=== PATIENT | male | born 1985 | race Caucasian/White ===

== ENCOUNTER 2017-07-16 14:52 | Emergency (ER) | payer SELFPAY ==
[2017-07-16 15:57] VITALS: BP 129/79
--- NOTE | 2017-07-16 16:13 | UC ---
GI Bleed HPI - HPI Summary HPI Summary: Pt presents with c/o of intermittent bloody discharge after BM's. Pt reports that he has had intermittent episodes over the last year. Denies, constipation , pain, anal intercourse, fever, chills, known history of GI disorder personal or FMH, denies, change in weight, night sweats, or change in dietary habits. - History Of Current Complaint Stated Complaint: PERSONAL Time Seen by Provider: 07/16/17 15:15 Hx Obtained From: Patient Onset/Duration: Gradual Onset, Lasting Weeks - one year, Still Present Timing: Intermittent Episodes Lasting: - 5-67 times per month Severity: Bright Red Blood per Rectum Severity Initially: Mild Severity Currently: None Associated Pain: None Associated Signs And Symptoms: Positive: Negative - Risk Factors GI Bleed Risk Factors: Negative - Allergies/Home medications Allergies/Adverse Reactions: Allergies Allergy/AdvReac Type Severity Reaction Status Date / Time No Known Allergies Allergy Verified 07/16/17 15:29 PMH/Surg Hx/FS Hx/Imm Hx Previously Healthy: Yes - Surgical History Surgical History: Yes Surgery Procedure, Year, and Place: Tonsils. Broken collarbone. Hernia as baby - Family History Known Family History: Positive: Other - breast cancer materanl grandmother - Social History Occupation: Employed Full-time Lives: With Family Alcohol Use: Rare Substance Use Type: Marijuana Substance Use Comment - Amount & Last Used: Daily Smoking Status (MU): Heavy Every Day Tobacco Smoker Type: Cigarettes Amount Used/How Often: 1 pack per day Length of Time of Smoking/Using Tobacco: 12 yrs Have You Smoked in the Last Year: Yes Household Exposure Type: Cigarettes - Immunization History Most Recent Influenza Vaccination: NONE 2015 Most Recent Tetanus Shot: UNKNOWN Review of Systems Constitutional: Negative Skin: Negative Eyes: Negative ENT: Negative Respiratory: Negative Cardiovascular: Negative Gastrointestinal: Other - BRBPR with BM's Genitourinary: Negative Motor: Negative Neurovascular: Negative Musculoskeletal: Negative Neurological: Negative Psychological: Negative All Other Systems Reviewed And Are Negative: Yes Physical Exam Triage Information Reviewed: Yes Appearance: Well-Appearing Vital Signs: Initial Vital Signs Temp 98.5 F 07/16/17 15:30 Pulse 70 07/16/17 15:30 Resp 16 07/16/17 15:30 BP 129/79 07/16/17 15:30 Pulse Ox 100 07/16/17 15:30 Vital Signs Reviewed: Yes Eye Exam: Normal ENT Exam: Normal Dental: Positive: Gross Decay/Caries @ - generalized Neck exam: Normal Respiratory Exam: Normal Cardiovascular Exam: Normal Abdominal Exam: Normal, Other - no external anal hemorrhoids visualized, no internal rectal hemorrhoids appreciated Musculoskeletal Exam: Normal Neurological Exam: Normal Psychological Exam: Normal Skin Exam: Normal Bleed Course/Dx - Course Course Of Treatment: I discussed with the pt the need to establish care with aPCP for health maintenance and to further pursue his current c/o of year long episodic BRBPR. Occult stool test was negative at today's visit. - Differential Dx/Diagnosis Differential Diagnosis/HQI/PQRI: Cancer, Diverticulitis, Hemorrhoids, Ulcerative Colitis Provider Diagnoses: Internal hemorroids. normal exam Discharge - Discharge Plan Condition: Stable Disposition: HOME Patient Education Materials: Normal Exam (ED) Referrals: [facility] [Outside] No Primary Care Phys,NOPCP [Primary Care Provider] - As Soon As Possible Additional Instructions: Please establish care with a PCP for routine health maintenance. It is important to manage your health on a routine basis. You examination today did not reveal any current problems but you need to pursue your presenting complaint with a PCP as soon as possible for further work up and health maintenance.
== END 2017-07-16 16:40 | disposition home or self-care (01) ==
LOC: UCCORT 14:52
DX: K64.8 Other hemorrhoids (principal); K62.5 Hemorrhage of anus and rectum; K02.9 Dental caries, unspecified; F12.90 Cannabis use, unspecified, uncomplicated; F17.210 Nicotine dependence, cigarettes, uncomplicated
CPT/HCPCS: 82270; 99211; G0463

== ENCOUNTER 2018-10-14 14:15 | Emergency (ER) | payer SELFPAY ==
[2018-10-14 14:46] VITALS: BP 118/71
--- NOTE | 2018-10-14 15:18 | UC ---
General HPI - HPI Summary HPI Summary: worsening bump behind R ear x 1 month. went to Er 1 week ago and was told to take tylenol. no hx mrsa. - History of Current Complaint Chief Complaint: UCSkin Stated Complaint: SKIN COMPLAINT Time Seen by Provider: 10/14/18 15:06 Hx Obtained From: Patient Onset/Duration: Gradual Onset Timing: Constant Pain Intensity: 0 Aggravating: nothing Associated Signs & Symptoms: Negative: Fever - Allergy/Home Medications Allergies/Adverse Reactions: Allergies Allergy/AdvReac Type Severity Reaction Status Date / Time bee venom protein (honey bee) Allergy Swelling Verified 10/14/18 14:44 PMH/Surg Hx/FS Hx/Imm Hx Previously Healthy: Yes - Surgical History Surgical History: Yes Surgery Procedure, Year, and Place: hernia repair as baby - Family History Known Family History: Positive: Other - breast cancer materanl grandmother - Social History Alcohol Use: Rare Substance Use Type: Marijuana Substance Use Comment - Amount & Last Used: Daily Smoking Status (MU): Heavy Every Day Tobacco Smoker Type: Cigarettes Amount Used/How Often: 1 pack per day Length of Time of Smoking/Using Tobacco: 12 yrs Have You Smoked in the Last Year: Yes Household Exposure Type: Cigarettes - Immunization History Most Recent Influenza Vaccination: NONE 2016 Most Recent Tetanus Shot: UNKNOWN Review of Systems All Other Systems Reviewed And Are Negative: Yes Constitutional: Positive: Negative Skin: Positive: Negative Eyes: Positive: Negative ENT: Positive: Negative Respiratory: Positive: Negative Cardiovascular: Positive: Negative Gastrointestinal: Positive: Negative Genitourinary: Positive: Negative Motor: Positive: Negative Neurovascular: Positive: Negative Musculoskeletal: Positive: Negative Neurological: Positive: Negative Psychological: Positive: Negative Physical Exam Triage Information Reviewed: Yes Appearance: Well-Appearing Vital Signs: Initial Vital Signs Temp 99.1 F 10/14/18 14:42 Pulse 83 10/14/18 14:42 Resp 14 10/14/18 14:42 BP 118/71 10/14/18 14:42 Pulse Ox 99 10/14/18 14:42 Vital Signs Reviewed: Yes Eyes: Positive: Conjunctiva Clear ENT: Positive: Normal ENT inspection, Other - 4mm raised, red fluctuant spot behind R ear with central scab that ruptured and drained puss with gentle pressure. No auricular adenopathy. Neck: Positive: Supple, Nontender, No Lymphadenopathy Respiratory: Positive: Lungs clear, Normal breath sounds Cardiovascular: Positive: RRR, No Murmur Abdomen Description: Positive: Nontender, No Organomegaly, Soft Bowel Sounds: Positive: Present Musculoskeletal: Positive: ROM Intact Neurological: Positive: Alert Psychological: Positive: Age Appropriate Behavior Skin Exam: Normal Course/Dx - Course Course Of Treatment: Pustual skin cleaned and Bacitracin applied by myself. - Diagnoses Provider Diagnosis: Pustule Discharge - Sign-Out/Discharge Documenting (check all that apply): Patient Departure All imaging exams completed and their final reports reviewed: No Studies - Discharge Plan Condition: Stable Disposition: HOME Patient Education Materials: Abscess (ED) Referrals: No Primary Care Phys,NOPCP [Primary Care Provider] - Additional Instructions: apply a thin layer of antibiotic ointment until healed. follow up fhn 3-5 days if not better or sooner if worse - Billing Disposition and Condition Condition: STABLE Disposition: Home - Attestation Statements Provider Attestation: I was available for consult. This patient was seen by the LIAN. The patient was not presented to, seen by, or examined by me. -Juan
== END 2018-10-14 15:24 | disposition home or self-care (01) ==
LOC: UCCORT 14:15
DX: L08.9 Local infection of the skin and subcutaneous tissue, unspecified (principal); F17.210 Nicotine dependence, cigarettes, uncomplicated
CPT/HCPCS: 99211; G0463